=== PATIENT | male | born 1985 | race Hispanic/Latino ===

== ENCOUNTER 2016-06-08 08:06 | Emergency (ER) | payer SELFPAY ==
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
[~2016-06-08 08:06] MED LIST: ADULT TUSS100 MG/5 M PO; BENADRYL25 MG PO; BLEPH-105 M1 OS; DIFLUCAN100 MG PO; SULFACETAMIDE; ZITHROMAX PO
== END 2016-06-08 09:12 | disposition home or self-care (01) ==
LOC: CED 08:06
DX: S09.90XA Unspecified injury of head, initial encounter (principal); S00.93XA Contusion of unspecified part of head, initial encounter; S40.021A Contusion of right upper arm, initial encounter; F17.210 Nicotine dependence, cigarettes, uncomplicated; Y09 Assault by unspecified means; Y92.9 Unspecified place or not applicable
CPT/HCPCS: 70450; 73060; 99284

== ENCOUNTER 2016-07-22 21:56 | Emergency (ER) | payer OTHER ==
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
== END 2016-07-22 22:55 | disposition home or self-care (01) ==
LOC: CFTX 21:56
DX: S06.0X0A Concussion without loss of consciousness, initial encounter (principal); S09.90XA Unspecified injury of head, initial encounter; S13.4XXA Sprain of ligaments of cervical spine, initial encounter; S80.812A Abrasion, left lower leg, initial encounter; F17.210 Nicotine dependence, cigarettes, uncomplicated; V43.52XA Car driver injured in collision with other type car in traffic accident, initial encounter; Y92.410 Unspecified street and highway as the place of occurrence of the external cause
CPT/HCPCS: 70450; 72125; 73590; 99283